=== PATIENT | male | born 2000 | race Two or more races ===

== ENCOUNTER 2023-08-20 09:36 | Emergency (ER) | payer BC, MEDICAID ==
[~2023-08-20] VITALS: Ht 190.5 cm; Wt 124.8 kg
[2023-08-20 10:16] VITALS: BP 152/55; PULSE 89; RESP 18; O2SAT 97
== END 2023-08-20 15:12 | disposition left against medical advice (07) ==
LOC: ER 09:36
DX: R20.0 Anesthesia of skin (principal); Z53.21 Procedure and treatment not carried out due to patient leaving prior to being seen by health care provider
CPT/HCPCS: 82962